=== PATIENT | female | born 2000 ===

== ENCOUNTER 2019-07-28 08:51 | Outpatient (CLI) | payer OTHER ==
[2019-07-28] MEDS ORDERED: LACTATED RINGERS 1,000 ML IV ONE (11:30)
[2019-07-28] MEDS ORDERED: LACTATED RINGERS 1,000 ML ONE (11:30)
== END 2019-07-28 14:28 | disposition home or self-care (01) ==
LOC: TRG 08:51 → APU 08:52 → TRG 14:28
PROVIDERS: ATTEND Obstetrics & Gynecology
DX: O62.9 Abnormality of forces of labor, unspecified (principal); Z3A.37 37 weeks gestation of pregnancy
CPT/HCPCS: 59025; J7120; 96360; 96361

== ENCOUNTER 2019-07-28 21:20 | Inpatient (IN) | payer OTHER ==
[2019-07-28] MEDS ORDERED: LACTATED RINGERS 1,000 ML ONE (22:17)
[2019-07-28] MEDS ORDERED: LIDOCAINE (2%) 20 MG/1 ML VIAL 20 ML MDV INFILTRATI ONE (22:18)
[2019-07-28] MEDS ORDERED: ePHEDrine SULFATE 50 MG/1 ML INJ IV PRN (22:18)
[2019-07-28] MEDS ORDERED: OXYTOCIN 20 UNIT/1000ML DRIP 20,000 MILLIUNITS/1,000 ML BAG IV ONE (22:18)
[2019-07-28] MEDS ORDERED: TERBUTALINE 1 MG/1 ML INJ IVP PRN (22:18)
[2019-07-28] MEDS ORDERED: TERBUTALINE 1 MG/1 ML INJ SUB-Q PRN (22:18)
[2019-07-28] MEDS ORDERED: MINERAL OIL 30 ML ORAL LIQD PO PRN (22:18)
[2019-07-28] MEDS ORDERED: AMPICILLIN/NS 2 GM/100 ML 2 GM/100 ML BAG IV ONE ×2 (22:18)
[2019-07-28 22:40] LABS: Hematocrit 31.4 % (30.3-42.9); Hemoglobin 9.9 gm/dl (10.1-14.3); Mean Corpuscular HGB Conc 32 % (30-34); Mean Corpuscular Volume 83 fl (79-97); Platelet Count 362 K/mm3 (140-440); Red Blood Count 3.78 M/mm3 (3.65-5.03)
[2019-07-28] MEDS ORDERED: LACTATED RINGERS 1,000 ML IV SCH (23:00)
[2019-07-28] MEDS ORDERED: OXYTOCIN 20 UNIT/1000ML DRIP 20 UNITS/1,000 ML BAG IV SCH (23:00)
[2019-07-28] MEDS ORDERED: OXYTOCIN DRIP 30 UNITS/500 ML BAG IV SCH (23:00)
[2019-07-28] MEDS ORDERED: LANOLIN/ZINC/DIMETHICONE (LANSINOH) 7 GM TP PRN (23:19)
[2019-07-28] MEDS ORDERED: ACETAMINOPHEN 325 MG TAB PO PRN (23:19)
[2019-07-28] MEDS ORDERED: MAGNESIUM HYDROXIDE (MOM) ORAL LIQD UDC PO PRN (23:19)
[2019-07-28] MEDS ORDERED: PROMETHAZINE 25 MG TAB PO PRN (23:19)
[2019-07-28] MEDS ORDERED: HYDROcodone/ACETAMINOPHEN 5-325 MG TAB PO PRN (23:19)
[2019-07-28] MEDS ORDERED: diphenhydrAMINE 25 MG CAP PO PRN (23:19)
[2019-07-28] MEDS ORDERED: ONDANSETRON 4 MG/2 ML INJ IV PRN (23:19)
[2019-07-28] MEDS ORDERED: WITCH HAZEL/ GLYCERIN PAD TP PRN (23:19)
[2019-07-28] MEDS ORDERED: PROMETHAZINE 25 MG RECT SUPP PR PRN (23:19)
--- NOTE | 2019-07-28 23:19 | History and Physical Report ---
History of Present Illness Date of examination: 07/28/19 Date of admission: 07/28/19 22:17 Chief complaint: contractions History of present illness: 18y/o @ 38+4 weeks presents to L&D with advanced cervical dilation. Patient is GBS positive. records are not available for review Past History Past Medical History: no pertinent history Past Surgical History: no surgical history Social history: single - Obstetrical History Expected Date of Delivery: 08/07/19 Actual Gestation: 38 Week(s) 4 Day(s) : 1 Para: 0 Hx # Term Pregnancies: 0 Number of Pregnancies: 0 Spontaneous Abortions: 0 Induced : 0 Number of Living Children: 0 Medications and Allergies Allergies Allergy/AdvReac Type Severity Reaction Status Date / Time No Known Allergies Allergy Unverified 07/28/19 09:06 Home Medications Medication Instructions Recorded Confirmed Last Taken Type RX: No Known Home Medications [No 07/28/19 07/28/19 Unknown History Reported Home Medications] Active Meds: Active Medications Ephedrine Sulfate (Ephedrine Sulfate) 10 mg IV Q2M PRN PRN Reason: Hypotension Oxytocin/Sodium Chloride (Pitocin/Ns 20 Unit/1000ml Drip) 20 units in 1,000 mls @ 125 mls/hr IV DIRECT SHARON Oxytocin/Sodium Chloride (Pitocin/Ns 30 Unit/500ml) 30 units in 500 mls @ 1 mls/hr IV TITR SHARON; Protocol Lactated Ringer's (Lactated Ringers) 1,000 mls @ 125 mls/hr IV DIRECT SHARON Ampicillin Sodium (Ampicillin/Ns 2 Gm/100 Ml) 2 gm in 100 mls @ 100 mls/hr IV ONCE ONE; Protocol Stop: 07/28/19 23:17 Mineral Oil (Mineral Oil) 30 ml PO QHS PRN PRN Reason: Constipation Terbutaline Sulfate (Brethine) 0.25 mg SUB-Q ONCE PRN PRN Reason: Hyperstimulation/Hypertonicity Terbutaline Sulfate (Brethine) 0.25 mg IVP ONCE PRN PRN Reason: Hyperstimulation/Hypertonicity Review of Systems All systems: negative Genitourinary: pelvic pain, contractions - Vital Signs Vital signs: Vital Signs Pulse Pulse Ox 118 H 98 07/28/19 21:43 07/28/19 21:43 Temp Pulse Resp BP Pulse Ox 98.6 F 107 H 18 128/60 100 05/27/20 22:08 07/28/19 22:37 07/28/19 22:08 07/28/19 21:45 07/28/19 22:37 - Physical Exam Breasts: Positive: deferred Cardiovascular: Regular rate Lungs: Positive: Clear to auscultation Abdomen: Positive: normal appearance Results Result Diagrams: 07/28/19 22:00 Abnormal lab results 07/28/19 Range/Units 22:00 WBC 17.5 H (4.5-11.0) K/mm3 Hgb 9.9 L (10.1-14.3) gm/dl MCH 26 L (28-32) pg RDW 16.0 H (13.2-15.2) % All other labs normal. Assessment and Plan - Patient Problems (1) Active labor at term Current Visit: Yes Status: Acute Plan to address problem: admit to L&D and initiate IV antibiotics
--- NOTE | 2019-07-29 00:04 | Procedure Note ---
OB Delivery Note - Delivery Date of Delivery: 07/29/19 Surgeon: ROBIN SUAZO Estimated blood loss: 200cc - Vaginal Delivery presentation: vertex Delivery position: OA Intrapartum events: meconium Delivery monitor: external FHT, external uterine Route of delivery: Delivery placenta: spontaneous Delivery cord: nuchal cord, 3 umbilical vessels Episiotomy: none Delivery laceration: 1st degree Anesthesia: none Delivery comments: The patient progressed to complete complete +2 and post to deliver a live-born female with Apgars of 8 and 9 weight 6 pounds 5 ounces after delivery of the head a nuchal cord x1 was manually reduced. The patient was noted to have meconium stained fluid. The shoulders delivered without difficulty. The was bulb suction. Cord clamping was delayed. The cord was clamped and cut and the was placed on the patient's abdomen for evaluation. The placenta delivered spontaneously intact with three-vessel cord. The patient sustained a first-degree small midline laceration that was left on repair. Estimated blood loss of 200 mL. - A at 1 minute: 8 at 5 minutes: 9 Infant Gender: Female (Weight 6 pounds 5 ounces)
[2019-07-29] MEDS: IBUPROFEN 600 MG TAB PO SCH ×4 (03:13→23:43)
--- NOTE | 2019-07-29 12:45 | Progress Note ---
Assessment and Plan A: PPD1 s/p Vital signs stable Chronic anemia due to , awaiting pp H&H P: Ferrous sulfate supplementation Routine pp care D/c to home on PPD2 Subjective - Subjective Date of service: 07/29/19 Principal diagnosis: s/p Interval history: PPD1 s/p Patient reports: appetite normal, voiding normally, pain well controlled, ambulating normally [place]: doing well, nursing well Objective - Vital Signs Latest vital signs: Vital Signs Temp Pulse Resp BP BP Pulse Ox 07/29/19 08:59 97.7 F 108 H 18 119/66 97 07/29/19 03:13 20 07/29/19 03:00 98.1 F 96 H 20 110/67 97 07/29/19 00:18 66 81 L 07/28/19 22:37 107 H 100 07/28/19 22:29 113 H 100 07/28/19 22:24 98 H 99 07/28/19 22:08 98.6 F 18 07/28/19 21:58 107 H 98 07/28/19 21:53 108 H 98 07/28/19 21:48 110 H 98 07/28/19 21:45 121 H 128/60 07/28/19 21:43 118 H 98 Intake and Output 07/28/19 07/29/19 07/29/19 23:59 07:59 15:59 Intake Total 240 Balance 240 Intake: Oral 240 Other: Total, Intake Amount 240 # Voids Void 1 Weight 140 lb Estimated Blood Loss 200 - Exam Lungs: Present: Normal air movement Abdomen: Present: soft. Absent: distention Uterus: Present: firm, fundal height below umbilicus. Absent: bogginess Extremities: Present: normal - Labs Labs: Abnormal lab results 07/28/19 Range/Units 22:00 WBC 17.5 H (4.5-11.0) K/mm3 Hgb 9.9 L (10.1-14.3) gm/dl MCH 26 L (28-32) pg RDW 16.0 H (13.2-15.2) %
--- NOTE | 2019-07-29 12:47 | Discharge Summary ---
Providers - Providers Date of Admission: 07/28/19 22:17 Date of discharge: 07/30/19 Attending physician: ROBIN SUAZO Primary care physician: ROBIN SUAZO Hospitalization Reason for admission: active labor, IUP at term Delivery: Episiotomy: none Laceration: 1st degree Other procedures: none complications: none Discharge diagnosis: IUP at term delivered Hospital course: Pt arrived with [facility] in active labor and progressed to . Her hospital course was notable for chronic anemia due to . She met discharge criteria on PPD1. Condition at discharge: Good Disposition: DC-01 TO HOME OR SELFCARE Plan - Discharge Medications Prescriptions: Ferrous Sulfate [Feosol 325 MG tab] 325 mg PO BID #60 tablet Ibuprofen [Motrin] 600 mg PO Q6H PRN #60 tablet PRN Reason: Pain - Provider Discharge Summary Activity: routine, no sex for 6 weeks, no heavy lifting 4 weeks, no strenuous exercise Diet: routine Instructions: routine Additional instructions: [] Smoking cessation referral if applicable(refer to patient education folder for contact #) [] Refer to [facility]'s [facility] Booklet Call your doctor immediately for: * Fever > 100.5 * Heavy vaginal bleeding ( >1 pad per hour) * Severe persistent headache * Shortness of breath * Reddened, hot, painful area to leg or breast * Drainage or odor from incision. * Keep incision clean and dry at all times and follow doctor's instructions regarding bathing/showering - Follow up plan Follow up: NORM GUIDRY MD [Staff Physician] - 14 Days (Please call [facility] shift supervisor to schedule appointment.)
[2019-07-29 12:58] LABS: Hematocrit 26.7 % (30.3-42.9); Hemoglobin 8.5 gm/dl (10.1-14.3)
[2019-07-29] MEDS ORDERED: FERROUS SULFATE 325 MG TAB PO SCH (22:00)
[2019-07-30] MEDS: IBUPROFEN 600 MG TAB PO SCH ×2 (06:08→12:20)
[2019-07-30 18:57] VITALS: BP 112/66
== END 2019-07-30 18:29 | disposition home or self-care (01) | DRG 775 ==
LOC: TRG 21:20 → APU 21:20 → LD 22:11 → TRG 22:17 → OBSVTOIN 22:17 → OB 07-29 02:32
PROVIDERS: ADMIT Obstetrics & Gynecology; ATTEND Obstetrics & Gynecology
PROC: 10E0XZZ Delivery of Products of Conception, External Approach (ICD-10-PCS; principal; 2019-07-29)
PROC: 0HQ9XZZ Repair Perineum Skin, External Approach (ICD-10-PCS; 2019-07-29)
DX: O77.0 Labor and delivery complicated by meconium in amniotic fluid (principal); O99.02 Anemia complicating childbirth; O69.81X0 Labor and delivery complicated by cord around neck, without compression, not applicable or unspecified; O99.824 Streptococcus B carrier state complicating childbirth; O70.0 First degree perineal laceration during delivery; Z3A.38 38 weeks gestation of pregnancy; Z37.0 Single live birth
CPT/HCPCS: 36415; 59025; 85014; 85018; 85027; 86592; 86850; 86900; 86901; 96360; 96361; G0378; J0290; J2590; J7120